=== PATIENT | male | born 1965 | race African-American/Black ===

== ENCOUNTER 2019-04-17 09:52 | Inpatient (IN) | payer OTHER ==
--- NOTE | 2019-04-17 09:58 | BHS.RME ---
Substance Use & Tx History - Substance Use History Alcohol Substance amount: Beer, 12 cans x 24 ounce Frequency of use: Daily Substance route: Oral Date of Last Use: 04/16/19 Cocaine (Crack) Substance amount: $100 Frequency of use: Daily Substance route: Smoking Date of Last Use: 04/16/19 Cannabis Substance amount: less than one joint Frequency of use: Once a month Substance route: Smoking Date of Last Use: 04/16/19 - Last Treatment Date of last treatment: 2013 Physical/Psych/Mental Status - Behavior Eye Contact: Decreased - Cooperativeness Cooperativeness: Reluctant - Thinking Thought Processes: Tight - Physical Health Problems Is patient presently having any pain?: No Does patient presently have any injuries (include location): No Does patient currently have a fever: No CIWA Muscle Tremors: None Anxiety: 1-Mildly Anxious Agitation: 1-Slight > Activity Paroxysmal Sweats: No Perspiration Orientation: 0-Oriented Tacttile Disturbances: 0-None Auditory Disturbances: 0-None Visual Disturbances: 0-None Headache: 0-None Present
[2019-04-17 10:51] VITALS: BMI 29.6
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
[2019-04-17] MEDS ORDERED: IBUPROFEN 400 MG TABLET (FP) PO PRN (11:20)
[2019-04-17] MEDS ORDERED: chlordiazePOXIDE HCL 25 MG CAPSULE PO PRN (11:20)
[2019-04-17] MEDS ORDERED: MENTHOL/PHENOL 1 EACH UD MM PRN (11:20)
[2019-04-17] MEDS ORDERED: BISMUTH SUBSALICYLATE 524 MG/30 ML UD PO PRN (11:20)
[2019-04-17] MEDS ORDERED: MAGNESIUM HYDROX 2400MG/30ML ORAL SUSPENSION 30 ML CUP PO PRN (11:20)
[2019-04-17] MEDS ORDERED: ACETAMINOPHEN 325 MG TABLET (FP) PO PRN ×2 (11:20)
[2019-04-17] MEDS ORDERED: MAG HYDROX/AL HYDROX/SIMETH 30 ML UNIT-DOSE CUP PO PRN (11:20)
[2019-04-17] MEDS ORDERED: hydrOXYzine PAMOATE 25 MG CAPSULE (FP) PO PRN (11:20)
[2019-04-17] MEDS ORDERED: MAGNESIUM CITRATE 300 ML BOTTLE PO PRN (11:20)
[2019-04-17] MEDS ORDERED: ALBUTEROL SO4 HFA INHALER IH PRN (11:22)
[2019-04-17] MEDS: HYDROCHLOROTHIAZIDE 25 MG TABLET (FP) PO SCH (12:37)
[2019-04-17] MEDS: chlordiazePOXIDE HCL 25 MG CAPSULE PO SCH ×2 (12:37→18:41)
[2019-04-17 14:42] LABS: HEMOGLOBIN 13.1 GM/dL (11.7-16.9); MCH 27.4 pg (25.7-33.7); MCHC 33.6 g/dl (32.0-35.9); MEAN CELL VOLUME 81.5 fl (80-96); MEAN PLT VOLUME 8.3 fl (7.5-11.1); PLATELET COUNT 273 K/MM3 (134-434); RBC 4.79 M/mm3 (4.00-5.60); WHITE BLOOD COUNT 6.5 K/mm3 (4.0-10.0)
[2019-04-17 14:48] LABS: ALBUMIN 3.8 g/dl (3.4-5.0); BILIRUBIN,TOTAL 0.7 mg/dL (0.2-1); BLOOD UREA NITROGEN 15.9 mg/dL (7-18); CALCIUM 9.2 mg/dL (8.5-10.1); CREATININE 1.3 mg/dL (0.55-1.3); POTASSIUM 4.3 mmol/L (3.5-5.1); TOT PROT 7.3 g/dl (6.4-8.2)
[2019-04-17] MEDS ORDERED: chlordiazePOXIDE HCL 10 MG CAPSULE PO PRN (21:27)
[2019-04-17] MEDS: MELATONIN 5 MG TABLETS PO PRN (23:14)
[2019-04-17] MEDS: chlordiazePOXIDE 5 MG CAPSULE PO SCH (23:14)
[2019-04-17] MEDS: THIAMINE HCL 100 MG TABLET (FP) PO SCH (23:15)
[2019-04-18] MEDS: chlordiazePOXIDE 5 MG CAPSULE PO SCH ×4 (06:13→22:27)
--- NOTE | 2019-04-18 10:29 | PN ---
S CIWA - CIWA Score Nausea/Vomitin-No Nausea/No Vomiting Muscle Tremors: 2 Anxiety: 0-No Anxiety, at Ease Agitation: 0-Normal Activity Paroxysmal Sweats: No Perspiration Orientation: 0-Oriented Tacttile Disturbances: 0-None Auditory Disturbances: 0-None Visual Disturbances: 0-None Headache: 0-None Present CIWA-Ar Total Score: 2 BHS Progress Note (SOAP) Subjective: No complaints offered, feeling better Objective: 04/18/19 10:27 Laboratory Tests 04/17/19 04/17/19 04/17/19 11:30 11:30 11:30 WBC 6.5 RBC 4.79 Hgb 13.1 Hct 39.0 MCV 81.5 MCH 27.4 MCHC 33.6 RDW 17.0 H Plt Count 273 MPV 8.3 Sodium 140 Potassium 4.3 Chloride 110 H Carbon Dioxide 25 Anion Gap 6 L BUN 15.9 Creatinine 1.3 Est GFR (CKD-EPI)AfAm 70.69 Est GFR (CKD-EPI)NonAf 60.99 Random Glucose 126 H Calcium 9.2 Total Bilirubin 0.7 AST 21 ALT 16 Alkaline Phosphatase 114 Total Protein 7.3 Albumin 3.8 RPR Titer Nonreactive Vital Signs Temperature 97.6 F 04/18/19 08:50 Pulse Rate 82 04/18/19 08:50 Respiratory Rate 16 04/18/19 08:50 Blood Pressure 145/67 04/18/19 08:50 O2 Sat by Pulse Oximetry (%) PE Gnl: WDWN, in bed Mental status: easily aroused, nl mentation Motor: moves limbs symmetrically Assessment: 04/18/19 10:28 1. Alcohol use disorder 2. hx of HTN Plan: 1. Librium protocol 2. on HCTZ, BP in good range
[2019-04-18] MEDS: HYDROCHLOROTHIAZIDE 25 MG TABLET (FP) PO SCH (10:30)
[2019-04-18] MEDS: PRENATAL VITAMINS W/ FOLIC ACID TABLET (FP) PO SCH (10:30)
--- NOTE | 2019-04-18 17:23 | CONSULT ---
[facility] Psychiatric Consult - Data Date of interview: 04/18/19 Admission source: [facility] Identifying data: Mr Hickman has been approached THREE times at bedside (medical students in attendance) for psychiatric evaluation. He REFUSED. Nursing staff is made aware.
[2019-04-18] MEDS: MELATONIN 5 MG TABLETS PO PRN (22:27)
[2019-04-18] MEDS: THIAMINE HCL 100 MG TABLET (FP) PO SCH (22:27)
[2019-04-19] MEDS ORDERED: chlordiazePOXIDE HCL 25 MG CAPSULE PO SCH (05:00)
[2019-04-19] MEDS: chlordiazePOXIDE HCL 10 MG CAPSULE PO SCH ×4 (06:14→22:22)
--- NOTE | 2019-04-19 10:36 | PN ---
S CIWA - CIWA Score Nausea/Vomitin-No Nausea/No Vomiting Muscle Tremors: None Anxiety: 3 Agitation: 0-Normal Activity Paroxysmal Sweats: 3 Orientation: 0-Oriented Tacttile Disturbances: 0-None Auditory Disturbances: 0-None Visual Disturbances: 0-None Headache: 2-Mild CIWA-Ar Total Score: 8 BHS Progress Note (SOAP) Subjective: c/o headache, sweats, anxiety, and muscle aches. Objective: 04/19/19 10:36 Vital Signs 04/19/19 04/19/19 04/19/19 03:30 05:07 06:30 Temperature 97.3 F L Pulse Rate 63 Respiratory 18 18 18 Rate Blood Pressure 145/100 04/19/19 09:50 Temperature 98.0 F Pulse Rate 76 Respiratory 18 Rate Blood Pressure 145/70 Laboratory Last Values WBC 6.5 K/mm3 (4.0-10.0) 04/17/19 11:30 RBC 4.79 M/mm3 (4.00-5.60) 04/17/19 11:30 Hgb 13.1 GM/dL (11.7-16.9) 04/17/19 11:30 Hct 39.0 % (35.4-49) 04/17/19 11:30 MCV 81.5 fl (80-96) 04/17/19 11:30 MCH 27.4 pg (25.7-33.7) 04/17/19 11:30 MCHC 33.6 g/dl (32.0-35.9) 04/17/19 11:30 RDW 17.0 % (11.9-15.9) H 04/17/19 11:30 Plt Count 273 K/MM3 (134-434) 04/17/19 11:30 MPV 8.3 fl (7.5-11.1) 04/17/19 11:30 Sodium 140 mmol/L (136-145) 04/17/19 11:30 Potassium 4.3 mmol/L (3.5-5.1) 04/17/19 11:30 Chloride 110 mmol/L (98-107) H 04/17/19 11:30 Carbon Dioxide 25 mmol/L (21-32) 04/17/19 11:30 Anion Gap 6 MMOL/L (8-16) L 04/17/19 11:30 BUN 15.9 mg/dL (7-18) 04/17/19 11:30 Creatinine 1.3 mg/dL (0.55-1.3) 04/17/19 11:30 Est GFR (CKD-EPI)AfAm 70.69 04/17/19 11:30 Est GFR (CKD-EPI)NonAf 60.99 04/17/19 11:30 Random Glucose 126 mg/dL (74-106) H 04/17/19 11:30 Calcium 9.2 mg/dL (8.5-10.1) 04/17/19 11:30 Total Bilirubin 0.7 mg/dL (0.2-1) 04/17/19 11:30 AST 21 U/L (15-37) 04/17/19 11:30 ALT 16 U/L (13-61) 04/17/19 11:30 Alkaline Phosphatase 114 U/L (45-117) 04/17/19 11:30 Total Protein 7.3 g/dl (6.4-8.2) 04/17/19 11:30 Albumin 3.8 g/dl (3.4-5.0) 04/17/19 11:30 RPR Titer Nonreactive (NONREACTIVE) 04/17/19 11:30 Labs noted. Assessment: 04/19/19 10:36 AOX3, in no acute respiratory distress. Full ROM, ambulating in the unit. Withdrawal symptoms. Plan: continue detox.
[2019-04-19] MEDS: PRENATAL VITAMINS W/ FOLIC ACID TABLET (FP) PO SCH (10:48)
[2019-04-19] MEDS: HYDROCHLOROTHIAZIDE 25 MG TABLET (FP) PO SCH (10:49)
[2019-04-19] MEDS: METHOCARBAMOL 500 MG TABLET PO PRN ×2 (10:50→22:23)
[2019-04-19] MEDS: THIAMINE HCL 100 MG TABLET (FP) PO SCH (22:22)
[2019-04-19] MEDS: MELATONIN 5 MG TABLETS PO PRN (22:22)
[2019-04-20] MEDS ORDERED: chlordiazePOXIDE 5 MG CAPSULE PO PRN
[2019-04-20] MEDS ORDERED: chlordiazePOXIDE HCL 10 MG CAPSULE PO PRN
[2019-04-20] MEDS ORDERED: chlordiazePOXIDE HCL 10 MG CAPSULE PO SCH (05:00)
[2019-04-20] MEDS: chlordiazePOXIDE 5 MG CAPSULE PO SCH ×4 (07:26→22:21)
[2019-04-20] MEDS: HYDROCHLOROTHIAZIDE 25 MG TABLET (FP) PO SCH (09:00)
[2019-04-20] MEDS: PRENATAL VITAMINS W/ FOLIC ACID TABLET (FP) PO SCH (10:30)
--- NOTE | 2019-04-20 14:17 | PN ---
S CIWA - CIWA Score Nausea/Vomitin-Mild Nausea/No Vomiting Muscle Tremors: 2 Anxiety: 4-Mod. Anxious/Guarded Agitation: 1-Slight > Activity Paroxysmal Sweats: 2 Orientation: 0-Oriented Tacttile Disturbances: 0-None Auditory Disturbances: 0-None Visual Disturbances: 1-Very Mild Sensitivity Headache: 1-Very Mild CIWA-Ar Total Score: 12 S Progress Note (SOAP) Subjective: 54 years old male admitted on 04/17/19 for alcohol withdrawal sx management treating wtih librium detox regiment ` feeling ok today resting in bed after lunch patient denies feeling depressive but tired health teaching on the necessity of behavior and psychosocial therapies groups and meetings as part of recovery process Objective: 04/20/19 14:18 Vital Signs Temperature 97.8 F 04/20/19 13:47 Pulse Rate 83 04/20/19 13:47 Respiratory Rate 16 04/20/19 13:47 Blood Pressure 104/55 L 04/20/19 13:47 O2 Sat by Pulse Oximetry (%) Laboratory Last Values WBC 6.5 K/mm3 (4.0-10.0) 04/17/19 11:30 RBC 4.79 M/mm3 (4.00-5.60) 04/17/19 11:30 Hgb 13.1 GM/dL (11.7-16.9) 04/17/19 11:30 Hct 39.0 % (35.4-49) 04/17/19 11:30 MCV 81.5 fl (80-96) 04/17/19 11:30 MCH 27.4 pg (25.7-33.7) 04/17/19 11:30 MCHC 33.6 g/dl (32.0-35.9) 04/17/19 11:30 RDW 17.0 % (11.9-15.9) H 04/17/19 11:30 Plt Count 273 K/MM3 (134-434) 04/17/19 11:30 MPV 8.3 fl (7.5-11.1) 04/17/19 11:30 Sodium 140 mmol/L (136-145) 04/17/19 11:30 Potassium 4.3 mmol/L (3.5-5.1) 04/17/19 11:30 Chloride 110 mmol/L (98-107) H 04/17/19 11:30 Carbon Dioxide 25 mmol/L (21-32) 04/17/19 11:30 Anion Gap 6 MMOL/L (8-16) L 04/17/19 11:30 BUN 15.9 mg/dL (7-18) 04/17/19 11:30 Creatinine 1.3 mg/dL (0.55-1.3) 04/17/19 11:30 Est GFR (CKD-EPI)AfAm 70.69 04/17/19 11:30 Est GFR (CKD-EPI)NonAf 60.99 04/17/19 11:30 Random Glucose 126 mg/dL (74-106) H 04/17/19 11:30 Calcium 9.2 mg/dL (8.5-10.1) 04/17/19 11:30 Total Bilirubin 0.7 mg/dL (0.2-1) 04/17/19 11:30 AST 21 U/L (15-37) 04/17/19 11:30 ALT 16 U/L (13-61) 04/17/19 11:30 Alkaline Phosphatase 114 U/L (45-117) 04/17/19 11:30 Total Protein 7.3 g/dl (6.4-8.2) 04/17/19 11:30 Albumin 3.8 g/dl (3.4-5.0) 04/17/19 11:30 RPR Titer Nonreactive (NONREACTIVE) 04/17/19 11:30 lab noted Assessment: 04/20/19 14:18 alcohol withdrawal Plan: librium regiment
[2019-04-20] MEDS: THIAMINE HCL 100 MG TABLET (FP) PO SCH (22:21)
[2019-04-20] MEDS: MELATONIN 5 MG TABLETS PO PRN (22:22)
[2019-04-20] MEDS: METHOCARBAMOL 500 MG TABLET PO PRN (22:22)
[2019-04-21] MEDS ORDERED: chlordiazePOXIDE HCL 10 MG CAPSULE PO SCH (05:00)
[2019-04-21] MEDS: chlordiazePOXIDE 5 MG CAPSULE PO SCH ×2 (06:37→17:30)
[2019-04-21] MEDS: HYDROCHLOROTHIAZIDE 25 MG TABLET (FP) PO SCH (10:17)
[2019-04-21] MEDS: METHOCARBAMOL 500 MG TABLET PO PRN ×2 (10:17→17:32)
[2019-04-21] MEDS: PRENATAL VITAMINS W/ FOLIC ACID TABLET (FP) PO SCH (10:17)
--- NOTE | 2019-04-21 11:47 | PN ---
S CIWA - CIWA Score Nausea/Vomitin-No Nausea/No Vomiting Muscle Tremors: 2 Anxiety: 2 Agitation: 0-Normal Activity Paroxysmal Sweats: 2 Orientation: 0-Oriented Tacttile Disturbances: 0-None Auditory Disturbances: 0-None Visual Disturbances: 1-Very Mild Sensitivity Headache: 0-None Present CIWA-Ar Total Score: 7 BHS Progress Note (SOAP) Subjective: 54 years old male admitted on 04/17/19 for alcohol withdrawal sx management treating with librium detox regiment feeling better today ambulating with walker from room to day room patient reports that he does not have primary care provider "I go to the emergency room for my medication" encourage Mr Hickman visit community health services such as [facility] / [facility]gent care for asthma management Objective: 04/21/19 11:49 Vital Signs Temperature 97.4 F L 04/21/19 08:36 Pulse Rate 85 04/21/19 08:36 Respiratory Rate 18 04/21/19 08:36 Blood Pressure 146/79 04/21/19 08:36 O2 Sat by Pulse Oximetry (%) Laboratory Last Values WBC 6.5 K/mm3 (4.0-10.0) 04/17/19 11:30 RBC 4.79 M/mm3 (4.00-5.60) 04/17/19 11:30 Hgb 13.1 GM/dL (11.7-16.9) 04/17/19 11:30 Hct 39.0 % (35.4-49) 04/17/19 11:30 MCV 81.5 fl (80-96) 04/17/19 11:30 MCH 27.4 pg (25.7-33.7) 04/17/19 11:30 MCHC 33.6 g/dl (32.0-35.9) 04/17/19 11:30 RDW 17.0 % (11.9-15.9) H 04/17/19 11:30 Plt Count 273 K/MM3 (134-434) 04/17/19 11:30 MPV 8.3 fl (7.5-11.1) 04/17/19 11:30 Sodium 140 mmol/L (136-145) 04/17/19 11:30 Potassium 4.3 mmol/L (3.5-5.1) 04/17/19 11:30 Chloride 110 mmol/L (98-107) H 04/17/19 11:30 Carbon Dioxide 25 mmol/L (21-32) 04/17/19 11:30 Anion Gap 6 MMOL/L (8-16) L 04/17/19 11:30 BUN 15.9 mg/dL (7-18) 04/17/19 11:30 Creatinine 1.3 mg/dL (0.55-1.3) 04/17/19 11:30 Est GFR (CKD-EPI)AfAm 70.69 04/17/19 11:30 Est GFR (CKD-EPI)NonAf 60.99 04/17/19 11:30 Random Glucose 126 mg/dL (74-106) H 04/17/19 11:30 Calcium 9.2 mg/dL (8.5-10.1) 04/17/19 11:30 Total Bilirubin 0.7 mg/dL (0.2-1) 04/17/19 11:30 AST 21 U/L (15-37) 04/17/19 11:30 ALT 16 U/L (13-61) 04/17/19 11:30 Alkaline Phosphatase 114 U/L (45-117) 04/17/19 11:30 Total Protein 7.3 g/dl (6.4-8.2) 04/17/19 11:30 Albumin 3.8 g/dl (3.4-5.0) 04/17/19 11:30 RPR Titer Nonreactive (NONREACTIVE) 04/17/19 11:30 lab noted Assessment: 04/21/19 11:50 alcohol withdrawal Plan: librium regiment
[2019-04-21] MEDS: MELATONIN 5 MG TABLETS PO PRN (21:47)
[2019-04-21] MEDS: THIAMINE HCL 100 MG TABLET (FP) PO SCH (21:48)
[2019-04-22] MEDS ORDERED: chlordiazePOXIDE 5 MG CAPSULE PO ONE (05:00)
[2019-04-22] MEDS ORDERED: chlordiazePOXIDE HCL 10 MG CAPSULE PO ONE (05:00)
--- NOTE | 2019-04-22 09:04 | DS ---
[facility] Detox Discharge Summary Admission Date: 04/17/19 Discharge Date: 04/22/19 - History Present History: Alcohol Dependence Additional Comments: 54 years old male admitted on 04/17/19 for alcohol withdrawal sx management treated with librium detox regiment Mr Hickman has completed the librium regiment and tolerated well alert oriented x 3 respiratory clear lungs bilaterally on auscultation abdomen soft no rebound tenderness skin warm dry Pertinent Past History: time for discharge 33 minutes patient prefers to return to [place] to his family - Physical Exam Results Vital Signs: Vital Signs Temperature 96.7 F L 04/22/19 06:09 Pulse Rate 67 04/22/19 06:09 Respiratory Rate 18 04/22/19 06:30 Blood Pressure 109/55 L 04/22/19 06:09 O2 Sat by Pulse Oximetry (%) Pertinent Admission Physical Exam Findings: alcohol withdrawal Laboratory Last Values WBC 6.5 K/mm3 (4.0-10.0) 04/17/19 11:30 RBC 4.79 M/mm3 (4.00-5.60) 04/17/19 11:30 Hgb 13.1 GM/dL (11.7-16.9) 04/17/19 11:30 Hct 39.0 % (35.4-49) 04/17/19 11:30 MCV 81.5 fl (80-96) 04/17/19 11:30 MCH 27.4 pg (25.7-33.7) 04/17/19 11:30 MCHC 33.6 g/dl (32.0-35.9) 04/17/19 11:30 RDW 17.0 % (11.9-15.9) H 04/17/19 11:30 Plt Count 273 K/MM3 (134-434) 04/17/19 11:30 MPV 8.3 fl (7.5-11.1) 04/17/19 11:30 Sodium 140 mmol/L (136-145) 04/17/19 11:30 Potassium 4.3 mmol/L (3.5-5.1) 04/17/19 11:30 Chloride 110 mmol/L (98-107) H 04/17/19 11:30 Carbon Dioxide 25 mmol/L (21-32) 04/17/19 11:30 Anion Gap 6 MMOL/L (8-16) L 04/17/19 11:30 BUN 15.9 mg/dL (7-18) 04/17/19 11:30 Creatinine 1.3 mg/dL (0.55-1.3) 04/17/19 11:30 Est GFR (CKD-EPI)AfAm 70.69 04/17/19 11:30 Est GFR (CKD-EPI)NonAf 60.99 04/17/19 11:30 Random Glucose 126 mg/dL (74-106) H 04/17/19 11:30 Calcium 9.2 mg/dL (8.5-10.1) 04/17/19 11:30 Total Bilirubin 0.7 mg/dL (0.2-1) 04/17/19 11:30 AST 21 U/L (15-37) 04/17/19 11:30 ALT 16 U/L (13-61) 04/17/19 11:30 Alkaline Phosphatase 114 U/L (45-117) 04/17/19 11:30 Total Protein 7.3 g/dl (6.4-8.2) 04/17/19 11:30 Albumin 3.8 g/dl (3.4-5.0) 04/17/19 11:30 RPR Titer Nonreactive (NONREACTIVE) 04/17/19 11:30 lab noted - Treatment Hospital Course: Detox Protocol Followed, Detoxed Safely, Responded well, Discharged Condition Good, Rehab Referral Accepted Patient has Accepted a Rehab Referral to: [facility] chemical dependent out patient - Medication Discharge Medications: Ambulatory Orders Albuterol Sulfate Inhaler - [Ventolin HFA Inhaler -] 2 inh PO Q4H PRN #1 inhaler 04/21/19 - Diagnosis (1) Walker as ambulation aid Status: Chronic (2) Alcohol dependence with withdrawal Status: Acute Qualifiers: Complication of substance-induced condition: uncomplicated Qualified Code(s ): F10.230 - Alcohol dependence with withdrawal, uncomplicated (3) Nicotine dependence Status: Acute Qualifiers: Nicotine product type: cigarettes Substance use status: in withdrawal Qualified Code(s): F17.213 - Nicotine dependence, cigarettes, with withdrawal (4) Asthma Status: Chronic Qualifiers: Asthma severity: mild Asthma persistence: intermittent Asthma complication type: with status asthmaticus Qualified Code(s): J45.22 - Mild intermittent asthma with status asthmaticus - AMA Did Patient Leave Against Medical Advice: No CIWA Score - CIWA Score Nausea/Vomitin-No Nausea/No Vomiting Muscle Tremors: 2 Anxiety: 1-Mildly Anxious Agitation: 0-Normal Activity Paroxysmal Sweats: 1-Minimal Palms Moist Orientation: 0-Oriented Tacttile Disturbances: 0-None Auditory Disturbances: 0-None Visual Disturbances: 0-None Headache: 0-None Present CIWA-Ar Total Score: 4
[2019-04-22 09:22] VITALS: BP 129/71; PULSE 85; TEMP 97.8
== END 2019-04-22 09:21 | disposition home or self-care (01) | DRG 774 ==
LOC: YASAS 09:52 → Y3N 11:35
PROVIDERS: ADMIT Allergy & Immunology; ATTEND Allergy & Immunology
PROC: HZ2ZZZZ Detoxification Services for Substance Abuse Treatment (ICD-10-PCS; principal; 2019-04-17)
DX: F10.230 Alcohol dependence with withdrawal, uncomplicated (principal); F14.20 Cocaine dependence, uncomplicated; F17.213 Nicotine dependence, cigarettes, with withdrawal; F31.9 Bipolar disorder, unspecified; I10 Essential (primary) hypertension; E78.00 Pure hypercholesterolemia, unspecified; J45.22 Mild intermittent asthma with status asthmaticus; R00.0 Tachycardia, unspecified; R29.2 Abnormal reflex; Z99.89 Dependence on other enabling machines and devices; Z59.0 Homelessness
CPT/HCPCS: 36415; 71046-TC-FY; 80053; 85027; 86593